=== PATIENT | male | born 1995 | race Caucasian/White ===

== ENCOUNTER 2016-08-09 20:57 | Emergency (ER) | payer OTHER ==
[~2016-08-09] VITALS: Ht 188 cm; Wt 90.9 kg
[2016-08-09 21:02] VITALS: BP 149/81; PULSE 69; TEMP 99.8
[2016-08-10] MEDS ORDERED: FLEXERIL 1010 MG/TAB PO (00:25)
== END 2016-08-09 22:03 | disposition left against medical advice (07) ==
LOC: COL.ER 20:57 → EDBD 21:14 → COL.ER 21:14
DX: R20.2 Paresthesia of skin (principal); Z53.21 Procedure and treatment not carried out due to patient leaving prior to being seen by health care provider

== ENCOUNTER 2016-08-09 23:54 | Emergency (ER) | payer OTHER ==
[~2016-08-09] VITALS: Ht 188 cm; Wt 90.9 kg
[2016-08-09 23:58] VITALS: BP 148/80; TEMP 98.5
[2016-08-10] MEDS ORDERED: FLEXERIL 1010 MG/TAB PO (00:25)
[2016-08-10 01:54] VITALS: PULSE 72
== END 2016-08-10 01:55 | disposition home or self-care (01) ==
LOC: COL.ER 23:54
DX: S16.1XXA Strain of muscle, fascia and tendon at neck level, initial encounter (principal); W19.XXXA Unspecified fall, initial encounter
CPT/HCPCS: J1885; J2360